=== PATIENT | female | born 1975 | race Caucasian/White ===

== ENCOUNTER → 2016-09-10 | Outpatient (CLI) | payer OTHER | END | disposition home or self-care (01) | LOC: CFH 10:13 | PROVIDERS: ATTEND Internal Medicine Cardiovascular Disease | DX: I34.0 Nonrheumatic mitral (valve) insufficiency (principal); I37.1 Nonrheumatic pulmonary valve insufficiency | CPT/HCPCS: 93306 ==

== ENCOUNTER → 2016-10-22 | Outpatient (CLI) | payer OTHER | END | disposition home or self-care (01) | LOC: CFH 10:01 | PROVIDERS: ATTEND Obstetrics & Gynecology | DX: Z12.31 Encounter for screening mammogram for malignant neoplasm of breast (principal) | CPT/HCPCS: 77063; G0202 ==